=== PATIENT | female | born 1975 | race Two or more races ===

== ENCOUNTER 2019-12-23 17:01 | Emergency (ER) | payer MEDICAID ==
[~2019-12-23] VITALS: Ht 157.5 cm; Wt 140.6 kg
[2019-12-23 19:00] VITALS: BP 139/99
== END 2019-12-23 20:51 | disposition home or self-care (01) ==
LOC: ER 17:01
DX: M71.22 Synovial cyst of popliteal space [Baker], left knee (principal); I10 Essential (primary) hypertension
CPT/HCPCS: 29505; 73562

== ENCOUNTER 2025-04-02 12:17 | Emergency (ER) | payer MEDICAID ==
[~2025-04-02] VITALS: Ht 154.9 cm; Wt 141.9 kg
[2025-04-02] MEDS: cloNIDine HCL 0.1 MG TAB PO ONE (12:45)
--- NOTE | 2025-04-02 12:50 | ED.PDOC ---
[place]. trauma (HPI) HPI Comments This is a 49 year old female brought in by daughter presenting to the ED with chief complaint of head injury s/p fall. Patient reports that she was playing with her grandchildren sitting on her walker when she had suddenly fell off of it backward due to the driveway being steep. Patient relays that she hit the back of her head. Patient states she went to [place] yesterday, however, they left early due to a long wait time. Patient denies any LOC, nausea, vomiting, dizziness, chest pain, back pain, or further injury. Time Seen by MD: 12:41 Primary Care Provider: DR. STEVEN Reviewed notes: Nurses Notes, Medications, Allergies Allergies: Uncoded Allergies: NKA (Allergy, 10/14/09) Information Source: Patient, Relative (Daughter) Mode of Arrival: Ambulatory Severity: Moderate Timing: Days Duration: Since onset Prehospital treatment: None Location: Head Mechanism: Fall Past Medical History PAST MEDICAL HISTORY: CVA, HTN Surgical History: , Tubal Ligation Surgical History (Other): Lt kidney surgery EXERCISE RIDER History: No Pertinent EXERCISE RIDER History Family History Family History: Reviewed,noncontributory to illness, No family hx of Cancer, No family hx of DM, No family hx of Heart ronak, No family hx of HTN, No family hx ofKidney ronak, No family hx of Liver ronak, No family hx of Lung ronak, No family hx of Stroke Social History Smoker: Non-Smoker Alcohol: Denies ETOH Use Drugs: Denies Drug Use Lives In: Home Constitutional: denies: chills, diaphoresis, fatigue, fever, malaise, sweats, weakness, others EENTM: denies: blurred vision, double vision, ear bleeding, ear discharge, ear drainage, ear pain, ear ringing, eye pain, eye redness, hearing loss, mouth pain, mouth swelling, nasal discharge, nose bleeding, nose congestion, nose pain, photophobia, tearing, throat pain, throat swelling, voice changes, others Respiratory: denies: cough, hemoptysis, orthopnea, SOB at rest, shortness of breath, SOB with excertion, stridor, wheezing, others Cardiovascular: denies: chest pain, dizzy spells, diaphoresis, Dyspnea on e xertion, edema, irregular heart beat, left arm pain, lightheadedness, palpitations, PND, syncope, others Gastrointestinal: denies: abdomen distended, abdominal pain, blood streaked bowels, constipated, diarrhea, dysphagia, difficulty swallowing, hematemesis, melena, nausea, poor appetite, poor fluid intake, rectal bleeding, rectal pain, vomiting, others Genitourinary: denies: abnormal vagina bleeding, burning, dyspareunia, dysuria, flank pain, frequency, hematuria, incontinence, pain, , vagina discharge, urgency, others Neurological: denies: dizziness, fainting, headache, left sided numbness, left sided weakness, numbness, paresthesia, pre-existing deficit, right sided numbness, right sided weakness, seizure, speech problems, tingling, tremors, weakness, others Musculoskeletal: reports: others (Head injury); denies: back pain, gout, joint pain, joint swelling, muscle pain, muscle stiffness, neck pain Integumetry: denies: bruises, change in color, change in hair/nails, dryness, laceration, lesions, lumps, rash, wounds, others Allergic/Immunocompromised: denies: Difficulty Healing, Frequent Infections, H spencer, Itching, others Hematologic/Lymphatic: denies: anemia, blood clots, easy bleeding, easy bruising, swollen glands, others Endocrine: denies: excessive hunger, excessive sweating, excessive thirst, excessive urination, flushing, intolerance to cold, intolerance to heat, unexplained weight gain, unexplained weight loss, others Psychiatric: denies: anxiety, bipolar disorder, depression, hopeless, panic disorder, schizophrenia, sleepless, suicidal, others All Other Systems: Reviewed and Negative Physical Exam General Appearance: Mild Distress HEENT: Normal ENT Inspection, Pharynx Normal, TMs Normal Neck: Full Range of Motion, Non-Tender, Normal, Normal Inspection Respiratory: Chest Non-Tender, Lungs Clear, No Accessory Muscle Use, No Respiratory Distress, Normal Breath Sounds Cardiovascular: No Edema, No JVD, No Murmur, No Gallop, Normal Peripheral Pulses, Regular Rate/Rhythm Breast Exam: Deferred Gastrointestinal: No Organomegaly, Non Tender, No Pulsatile Mass, Normal Bowel Sounds, Soft Genitalia: Deferred Pelvic: Deferred Rectal: Deferred Extremities: No calf tenderness, Normal capillary refill, Normal inspection, Normal range of motion, Non-tender, No pedal edema Musculoskeletal : Apperance: Normal Neurologic: Alert, cargo bracer II-XII nml as Tested, No Motor Deficits, Normal Affect, Normal Mood, No Sensory Deficits Cerebellar Function: Normal Reflexes: Normal Skin: Dry, Normal Color, Warm, Other (Minimal occipital hematoma) Lymphatic: No Adenopathy Was a procedure done? Was a procedure done?: No Differential Diagnosis Multiple Trauma: Closed Head Injury, Fractures, Abrasions, Contusion X-Ray, Labs, Meds, VS Vital Signs Date Time Temp Pulse Resp B/P (MAP) Pulse Ox O2 Delivery O2 Flow Rate FiO2 04/02/25 12:42 97.9 79 20 159/111 (127) 94 97.9 CAT scan of the head shows: Impression: No evidence of acute intracranial hemorrhage. Right basal ganglia and left frontal lobe periventricular hypodensities which may represent areas of infarct of unknown chronicity. If there is concern for acute infarct, MRI should be considered for further evaluation. [id number] parieto-occipital edema/hematoma. The patient is being discharged The patient will return to the emergency department's condition worsens The patient understands and agrees with the management Images Reviewed?: Images reviewed and evaluated by me Time of 1ST Reevaluation: 13:29 Reevaluation 1ST: Unchanged Patient Education/Counseling: Diagnosis, Treatment, Prognosis, Need For Follow Up Family Education/Counseling: Diagnosis, Treatment, Prognosis, Need For Follow Up Departure 1 Departure Time of Disposition: 13:29 Impression: Primary Impression: History of fall Additional Impression: Blunt head trauma Qualified Codes: S09.8XXA - Other specified injuries of head, initial encounter Disposition: HOME / SELF CARE / HOMELESS Condition: Fair Discharged With: Self Critical Care Note Critical Care Time?: No Stability Stability form required: No Heart Score Heart Score: Heart Score Response (Comments) Value History N/A 0 EKG N/A 0 Age N/A 0 Risk Factors N/A 0 Troponin N/A 0 Total 0 I personally scribed for ZACH LIMA MD ([email or web address]) on 04/02/25 at 12:50. Electronically submitted by Narendra Doss ([email or web address]). ZACH LIMA MD Apr 02, 2025 12:50
--- NOTE | 2025-04-02 13:18 | DVH ---
Procedure: CT HEAD WITHOUT CONTRAST Study Date and Requested Time: 04/02/2025 12:41 PM History: trauma Comparison: None Dose: CTDI: 64.98 mGy DLP: 1280.22 mGycm Technique: Multiplanar images obtained through the brain without intravenous contrast. Findings: Normal brain volume and formation. Mild chronic small vessel ischemic changes. Right basal ganglia an d left frontal lobe periventricular hypodensities which may represent areas of infarct of unknown chr onicity. No hemorrhages, masses, mass effect, midline shift, or herniation. No intra-axial or extra-axial flui d collections. No evidence of hydrocephalus. The basal cisterns are patent. The pituitary gland, sella and parasellar regions are unremarkable. The cerebellar tonsils are in nor mal position. The cerebellum is unremarkable. The orbits and globes are unremarkable. The paranasal sinuses and mastoids are clear. There are no wo rrisome calvarial lesions. [id number] parieto-occipital edema/hematoma. Impression: No evidence of acute intracranial hemorrhage. Right basal ganglia and left frontal lobe periventricular hypodensities which may represent areas of infarct of unknown chronicity. If there is concern for acute infarct, MRI should be considered for fu rther evaluation. [id number] parieto-occipital edema/hematoma.
[2025-04-02] MEDS: ACETAMINOPHEN 325 MG TAB PO ONE (14:23)
[2025-04-02 14:29] VITALS: BP 130/90; PULSE 75; RESP 18; TEMP 97.9; O2SAT 94
== END 2025-04-02 14:27 | disposition home or self-care (01) ==
LOC: ER 12:17
DX: S00.83XA Contusion of other part of head, initial encounter (principal); I10 Essential (primary) hypertension; Z86.73 Personal history of transient ischemic attack (TIA), and cerebral infarction without residual deficits; Z98.51 Tubal ligation status; Z98.890 Other specified postprocedural states; W18.39XA Other fall on same level, initial encounter; Y93.89 Activity, other specified; Y92.89 Other specified places as the place of occurrence of the external cause; Y99.8 Other external cause status
CPT/HCPCS: 70450